=== PATIENT | female | born 1975 | race Caucasian/White ===

== ENCOUNTER 2021-01-23 14:39 | Emergency (ER) | payer BC ==
[2021-01-23 14:45] VITALS: PULSE 82
[2021-01-23] MEDS ORDERED: KETOROLAC 15 MG/ML 1 ML VIAL IM STA (15:16)
--- NOTE | 2021-01-23 15:19 | ED ---
Extremity Problem HPI - General Chief complaint: Extremity Problem,Nontraumatic Stated complaint: L Hip Pain Time Seen by Provider: 01/23/21 15:08 Source: patient, RN notes reviewed Mode of arrival: ambulatory Limitations: no limitations - History of Present Illness Initial comments: Patient is a 45-year-old female presents to emergency department complaining of left hip/low back pain. She notes that she has not done any new extra strenuous activities or work. She does not remember injuring her back with any weird twisting motions. She stated that last night she tried laying in bed cannot get comfortable no matter what position she tried she tried sleeping in a chair to no avail. She will the pain fluctuates between a 6 out of 10-8 out of 10 that is constant and unrelieved with medication or position changes. She did note that sitting causes the pain increased. She denied any point tenderness, chest pain first breath headache nausea vomiting diarrhea, fever fatigue chills weakness numbness paresthesias. - Related Data Previous Rx's Medication Instructions Recorded predniSONE 50 mg PO DAILY #5 tab 01/23/21 Allergies Allergy/AdvReac Type Severity Reaction Status Date / Time codeine Allergy Vomiting Verified 01/23/21 14:45 Review of Systems ROS Statement: Those systems with pertinent positive or pertinent negative responses have been documented in the HPI. ROS Other: All systems not noted in ROS Statement are negative. Past Medical History Additional Past Medical History / Comment(s): Eye pressure History of Any Multi-Drug Resistant Organisms: None Reported Past Surgical History: No Surgical Hx Reported Past Psychological History: No Psychological Hx Reported Smoking Status: Former smoker, Vaper Past Alcohol Use History: None Reported Past Drug Use History: Marijuana General Exam Limitations: no limitations General appearance: alert, in no apparent distress, obese Head exam: Present: atraumatic, normocephalic, normal inspection Eye exam: Present: normal appearance, PERRL, EOMI. Absent: scleral icterus, conjunctival injection, periorbital swelling ENT exam: Present: normal exam, mucous membranes moist Neck exam: Present: normal inspection. Absent: tenderness, meningismus, lymphadenopathy Respiratory exam: Present: normal lung sounds bilaterally. Absent: respiratory distress, wheezes, rales, rhonchi, stridor Cardiovascular Exam: Present: regular rate, normal rhythm, normal heart sounds. Absent: systolic murmur, diastolic murmur, rubs, gallop, clicks GI/Abdominal exam: Present: soft, normal bowel sounds. Absent: distended, tenderness, guarding, rebound, rigid Extremities exam: Present: normal inspection, full ROM, normal capillary refill, other (Positive well leg raise test on left side.). Absent: tenderness, pedal edema, joint swelling, calf tenderness Neurological exam: Present: alert, oriented X3, CN II-XII intact Psychiatric exam: Present: normal affect, normal mood Skin exam: Present: warm, dry, intact, normal color. Absent: rash Course Vital Signs 01/23/21 14:42 Temperature 97.6 F Pulse Rate 82 Respiratory 20 Rate Blood Pressure 172/83 O2 Sat by Pulse 98 Oximetry Medical Decision Making - Medical Decision Making 45-year-old male complaining of left hip pain lasts left lower back pain. Bilateral hip and pelvis x-ray ordered, 15 mg of Toradol ordered for pain. X-ray negative Case discussed with Dr. erickson, was decided patient could discharge home. Disposition Clinical Impression: Lumbar strain, Sciatica Disposition: HOME SELF-CARE Condition: Stable Instructions (If sedation given, give patient instructions): Low Back Strain (ED) Additional Instructions: Please return to the Emergency Department if symptoms worsen or any other concerns. Follow-up with primary care 1-2 days. Take medications as prescribed. Avoid any strenuous activity. Prescriptions: predniSONE 50 mg PO DAILY #5 tab Is patient prescribed a controlled substance at d/c from ED?: No Referrals: Silvia Bustamante MD [Primary Care Provider] - 1-2 days Time of Disposition: 16:15
--- NOTE | 2021-01-23 16:10 | XR ---
EXAMINATION TYPE: XR Hip Bilateral and AP pelvis DATE OF EXAM: 01/23/2021 COMPARISON: NONE HISTORY: Left hip pain TECHNIQUE: A single AP view of the pelvis is obtained. Two views of the bilateral hip are obtained. FINDINGS: There is no acute fracture/dislocation evident in the pelvis. The hip and sacroiliac join ts appear symmetric and unremarkable. The overlying soft tissue appears unremarkable. Two views of bilateral hip show no acute fracture or dislocation. No focal lytic or sclerotic lesion seen in the proximal bilateral femur. The overlying soft tissue is unremarkable. Probable phleboli ths present in the left hemipelvis IMPRESSION: There is no acute fracture or dislocation in the pelvis or bilateral hip.
--- NOTE | 2021-01-23 16:41 | ED ---
Medical Decision Making - Radiology Data Radiology results: report reviewed, image reviewed There is no acute fracture or dislocation the pelvis or bilateral hip. Disposition Clinical Impression: Lumbar strain, Sciatica Disposition: HOME SELF-CARE Condition: Stable Instructions (If sedation given, give patient instructions): Low Back Strain (ED) Additional Instructions: Please return to the Emergency Department if symptoms worsen or any other concerns. Follow-up with primary care 1-2 days. Take medications as prescribed. Avoid any strenuous activity. Prescriptions: predniSONE 50 mg PO DAILY #5 tab Is patient prescribed a controlled substance at d/c from ED?: No Referrals: Silvia Bustamante MD [Primary Care Provider] - 1-2 days
[2021-01-23 17:09] VITALS: BP 140/80; RESP 16; TEMP 98.2
== END 2021-01-23 16:50 | disposition home or self-care (01) ==
LOC: EC 14:39
DX: S39.012A Strain of muscle, fascia and tendon of lower back, initial encounter (principal); M54.42 Lumbago with sciatica, left side; Z88.5 Allergy status to narcotic agent; Z87.891 Personal history of nicotine dependence; X50.0XXA Overexertion from strenuous movement or load, initial encounter; Y92.69 Other specified industrial and construction area as the place of occurrence of the external cause; Y99.0 Civilian activity done for income or pay
CPT/HCPCS: 73521; 99283; 96372; J1885

== ENCOUNTER → 2021-05-28 | Outpatient (CLI) | payer BC ==
--- NOTE | 2021-05-28 20:28 | CONS ---
CONSULTATION DATE OF SERVICE: 05/28/2021. 45-year-old lady has been evaluated in [facility] for possible obstructive sleep apnea-hypopnea syndrome and significant excessive daytime sleepiness. HISTORY OF PRESENT ILLNESS/SLEEP-WAKE EVALUATION: SLEEP SCHEDULE: Patient's usual sleep schedule from 10 or 11 p.m. until 4:15 and 10:15 am depending from her shift schedule. On weekends, she sleeps from midnight until 8/10 a.m. FALLING ASLEEP: No problems with falling asleep although she has TV set in bedroom. DURING SLEEP: She usually sleeps on the back position. She snores very loudly with witnessed episodes of stopped breathing during sleep. She wakes up from sleep 2 times with nocturia. No history of hypnagogic hallucinations, sleep paralysis or cataplexy. DURING THE DAY/SLEEP WAKE EVALUATION: In the day she feels very sleepy, wakes up tired, irritability. Mathias Sleepiness Scale in the high range of 18. Usually no vivid dreams during naps. Usually feels refreshed after naps. PAST MEDICAL HISTORY: Positive for episodes of increasing blood pressure in the office, increasing eye pressure, anxiety, depression, acid reflux. PAST SURGICAL HISTORY: Hooper teeth removed. MEDICATIONS: Zoloft, eyedrops. SOCIAL HISTORY: Negative for smoking or using alcohol. FAMILY HISTORY: Positive for heart problems, snoring and diabetes by her father and cancer, headaches, acid reflex, mental illness by her mother. REVIEW OF SYSTEMS: Awakenings from sleep, significant excessive daytime sleepiness. PHYSICAL EXAMINATION: GENERAL: lady without distress. BP 163/77, HR 92, RR 15, height 5 feet 3 inches, weight 243 pounds. Body mass index 43, temperature 98.5, oxygen saturation at room air 97%. HEENT: Oropharynx low position of soft palate. Mallampati 3. NECK: Wide neck 19-1/2 inches in circumference. Neck: Supple, no JVD. Thyroid is not palpable. LUNGS: Clear to percussion and to auscultation. Good air exchange. No wheezing or rhonchi. HEART: S1, S2 regular. No murmurs, gallops, or rubs. ABDOMEN: Obese. Soft and nontender. Bowel sounds are present. No organomegaly appreciated. EXTREMITIES: No clubbing or cyanosis. 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 Cranial nerves 2 to 7 intact. There is no fasciculation or atrophy. noted. No focal deficits observed. IMPRESSION: 1. Loud snoring, witnessed episodes of stopped breathing during sleep, multiple awakenings from sleep, significant excessive daytime sleepiness. Low position of soft palate. Mallampati 3 extremely wide neck 19-1/2 inches in circumference. Obstructive sleep apnea-hypopnea syndrome. 2. Significant excessive daytime sleepiness. Mathias Sleepiness Scale is 18 dictate necessity to include hypersomnia and narcolepsy in differential diagnosis. 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 4. Raised blood pressure in medical offices including today in our office. 5. Increased eye pressure. 6. History of anxiety. 7. History of depression. 8. Acid reflux. PLAN: 1. Home sleep apnea test for confirming obstructive sleep apnea-hypopnea syndrome. 2. If home sleep apnea test negative or if the patient on treatment with CPAP, the patient continues to feel sleepiness, multiple sleep latency test. 3. Losing weight. 4. Sleep hygiene with regular time in bed for at least 7.5 to 8 hours. 5. No driving if feeling sleepiness. Thank you very much for referring this patient for consultation. Sincerely, Abe Nava MD, PhD, FAASM Diplomat of [place] [employer] [place] [employer] Ratings Analyst of [facility] MMODL / IJN: [id number] /
== END ==
LOC: SLEEP 16:40
PROVIDERS: ATTEND Internal Medicine
DX: G47.33 Obstructive sleep apnea (adult) (pediatric) (principal); F41.9 Anxiety disorder, unspecified; F32.9 Major depressive disorder, single episode, unspecified; K21.9 Gastro-esophageal reflux disease without esophagitis; H40.059 Ocular hypertension, unspecified eye; R03.0 Elevated blood-pressure reading, without diagnosis of hypertension; Z88.5 Allergy status to narcotic agent
CPT/HCPCS: 99211

== ENCOUNTER → 2022-05-24 | Outpatient (CLI) | payer BC ==
--- NOTE | 2022-05-25 15:08 | MM ---
Reason for Exam: Screening (asymptomatic). Baseline mammogram. Patient History: Menarche at age 13. Currently using Hormonal Contraceptives, beginning at age 40 for 7 years. Last menstrual period: 05/12/2022 Risk Values: Paradise 5 year model risk: 0.6%. NCI Lifetime model risk: 7.0%. Prior Study Comparison: Patient's first Mammogram. Tissue Density: The breast tissue is heterogeneously dense. This may lower the sensitivity of mammography. Findings: Analyzed By CAD. Benign appearance border nodules in the left breast. Short-term follow-up is recommended. No suspicious groups of microcalcifications, spiculated or lobular masses, architectural distortion or other secondary signs of malignancy are mammographically apparent. Overall Assessment: Probably benign, BI-RAD 3 Management: Diagnostic Mammogram of the left breast in 6 months. A negative mammogram report should not preclude additional follow up of suspicious palpable abnormalities. Patient should continue monthly self breast exam. A clinical breast exam by your physician is recommended on an annual basis and results should be correlated with mammographic findings. Electronically signed and approved by: Madan Sharma D.O. Radiologis
== END | disposition home or self-care (01) ==
LOC: RADMAMWWP 16:15
PROVIDERS: ATTEND Obstetrics & Gynecology Obstetrics
DX: Z12.31 Encounter for screening mammogram for malignant neoplasm of breast (principal)
CPT/HCPCS: 77067

== ENCOUNTER → 2023-12-06 | Outpatient (CLI) | payer BC ==
[2023-12-06 15:14] LABS: Anion Gap 13.1 mmol/L (4.00-12.00); Carbon Dioxide 22.9 mmol/L (21.6-31.8); Potassium 4.3 mmol/L (3.5-5.5)
[2023-12-06 15:35] LABS: Basophils # (A) 0.05 X 10*3/uL (0.00-0.10); Basophils % (A) 0.7 %; Eosinophils # (A) 0.18 X 10*3/uL (0.04-0.35); Eosinophils % (A) 2.4 %; HCT 43.9 % (37.2-46.3); HGB 14.3 g/dL (12.0-15.0); MCH 28.9 pg (27.0-32.0); MCHC 32.6 g/dL (32.0-37.0); MCV 88.7 FL (80.0-97.0); Mean Platelet Volume 9.9 FL (9.5-12.2); Monocytes # (A) 0.42 X 10*3/uL (0.20-1.00); Monocytes % (A) 5.7 %; NRBC Per 100 WBC 0 X 10*3/uL (0.00-0.01); Neutrophils # (A) 5.01 X 10*3/uL (1.80-7.70); Neutrophils % (A) 67.9 %; Platelet Count 261 X 10*3/uL (140-440); RBC 4.95 X 10*6/uL (4.10-5.20); RDW 13.8 % (11.5-14.5); WBC 7.38 X 10*3/uL (4.50-10.00)
== END | disposition home or self-care (01) ==
LOC: LABPAT 09:59
PROVIDERS: ATTEND Orthopaedic Surgery Hand Surgery
DX: Z01.812 Encounter for preprocedural laboratory examination (principal); G56.02 Carpal tunnel syndrome, left upper limb
CPT/HCPCS: 80051; 85025

== ENCOUNTER 2023-12-14 07:07 | Day surgery (SDC) | payer BC ==
--- NOTE | 2023-12-12 13:18 | P.HPOR ---
History of Present Illness H&P Date: 12/12/23 Subjective: This is a 48 year old female that presents today for initial evaluation regarding a several year history of progressively worsening left hand paresthesias in the thumb, index, middle and ring fingers. The patient has tried bracing and PO steroids with only temporary relief. The patient denies any inciting event or neck pain. She states her left is worse than her right. 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 Physical Examination: LUE: AIN/PIN/Radial/Ulnar/Median motor intact. Radial/Ulnar/Median SILT. 2+/4 Radial/Ulnar pulses palpated. 5/5 APB, 5/5 FDI. Negative Finkelsteins, negative CMC grind, positive Durkan's compression. RUE: AIN/PIN/Radial/Ulnar/Median motor intact. Radial/Ulnar/Median SILT. 2+/4 Radial/Ulnar pulses palpated. 5/5 APB, 5/5 FDI. Negative Finkelsteins, negative CMC grind, positive Durkan's compression. Impression: 1.) Left carpal tunnel syndrome 2.) Right carpal tunnel syndrome Plan: Diagnosis and treatment options were discussed with the patient. The patient has failed conservative treatment and would like to pursue a left endoscopic vs open carpal tunnel release followed by the same on her right side 2 weeks later. Risks and benefits of surgery including bleeding, infection, damage to surrounding tissue, need for further surgery, possible need to convert to open procedure, residual numbness were discussed and the patient wished to go forward with surgery. CC: Danay Goodman NP -Nick Quiroz DO Orthopedic Hand/Upper Extremity Surgeon Past Medical History Past Medical History: Eye Disorder, Sleep Apnea/CPAP/BIPAP Additional Past Medical History / Comment(s): Eye pressure,sesonal allergies, uses cpap History of Any Multi-Drug Resistant Organisms: None Reported Past Surgical History: No Surgical Hx Reported Additional Past Surgical History / Comment(s): colonoscopy Past Anesthesia/Blood Transfusion Reactions: No Reported Reaction Smoking Status: Former smoker - Past Family History Father Family Medical History: Cancer Additional Family Medical History / Comment(s): pancreatic Mother Family Medical History: Cancer, Deep Vein Thrombosis (DVT) Additional Family Medical History / Comment(s): melanoma Medications and Allergies Home Medications Medication Instructions Recorded Confirmed Type Cetirizine HCl [Zyrtec] 10 mg PO Q48H 12/09/23 12/09/23 History Latanoprost [Latanoprost 0.005%] 1 drop BOTH EYES DAILY 12/09/23 12/09/23 History Sertraline [Zoloft] 100 mg PO DAILY 12/09/23 12/09/23 History Simpesse 1 tab PO DAILY 12/09/23 12/09/23 History Vid D (Unk) 1 tab PO Q72H 12/09/23 12/09/23 History Allergies Allergy/AdvReac Type Severity Reaction Status Date / Time codeine Allergy Vomiting Verified 12/09/23 08:44 Physical Examination Osteopathic Statement: *. No significant issues noted on an osteopathic structural exam other than those noted in the History and Physical/Consult.
[~2023-12-14 07:07] MED LIST: HYDROmorphone 0.5 MG/0.5 ML SYRINGE IVP PRN; LACTATED RINGERS 1,000 ML IV SCH; ONDANSETRON 4 MG/2 ML VIAL IVP ONE
[2023-12-14] MEDS ORDERED: KETAMINE HCL IN 0.9 % NACL 50 MG/5 ML SYRINGE ONE (08:05)
[2023-12-14] MEDS ORDERED: fentaNYL (PF) 50 MCG/ML 2 ML AMP ONE (08:05)
[2023-12-14] MEDS ORDERED: LIDOCAINE 1% INJ 10MG/ML (20 ML MDV) ONE (08:05)
[2023-12-14] MEDS ORDERED: MIDAZOLAM 2 MG/2 ML VIAL ONE (08:05)
[2023-12-14] MEDS ORDERED: PROPOFOL 10 MG/ML 20 ML VIAL IV ONE (08:05)
[2023-12-14] MEDS ORDERED: LIDOCAINE 2% INJ 20 MG/ML SQ ONE ×2 (08:15→08:24)
[2023-12-14] MEDS ORDERED: BUPIVACAINE (PF) 0.5% 30 ML VIAL SQ ONE ×2 (08:15→08:24)
[2023-12-14 08:23] VITALS: RESP 16; TEMP 97.6
--- NOTE | 2023-12-14 08:49 | P.OP ---
Date of Procedure: 12/14/23 Preoperative Diagnosis: Left carpal tunnel syndrome Postoperative Diagnosis: Left carpal tunnel syndrome Procedure(s) Performed: Left endoscopic carpal tunnel release Anesthesia: MAC Surgeon: Nick Quiroz Estimated Blood Loss (ml): 0 Pathology: none sent Condition: stable Disposition: PACU Description of Procedure: This is a 48 year old female who presents today for a left endoscopic carpal tunnel release after having failed conservative treatment in the past. Risks and benefits of surgery were discussed with the patient including bleeding, damage to surrounding tissue, infection, need to convert to open procedure, need for further surgery as well as risks of anesthesia including pulmonary embolism and even and the patient wished to proceed with surgical intervention. The patients was seen in the pre-operative area by myself. Consent and H&P were completed and updated. The correct extremity was marked in the pre-operative area by myself and all other questions were answered. Operative Narrative: The patient was brought to the operating room by the department of anesthesia. They remained on the portable stretcher and a rolling hand table was brought to the side of the operative extremity. Pre-operative time out was performed indicating the correct patient, procedure and laterality. All in the room agreed. The patient was then drifted off to sleep by the department of anesthesia. MAC anesthesia was utilized and a 50:50 mixture of 1% Lidocaine and 0.5% bupivacaine was injected into the subcutaneous tissues of the palmar skin, 8ccs total. A nonsterile tourniquet was then applied to the operative extremity and the left upper extremity was then prepped and draped in normal sterile fashion. The operative extremity was the exsanguinated with an esmarch bandage and the tourniquet was inflated to 250mmHg. 15 blade scalpel was utilized to make a transverse incision on the palmar skin just ulnar to the palmaris longus tendon at the level of the distal wrist crease. Ragnell retractor was then placed radially and blunt dissection was performed to reveal the distal forearm fascia. This was lifted with fine Mumtaz pick ups and Littler tenotomy scissors were then used to open the forearm fascia transversely and a double skin hook was then placed. Hamate finder was placed into the carpal tunnel and then sequential sized dilators were inserted followed by the synovial elevator to separate the flexor tenosynovium from the undersurface of the transverse carpal ligament and a washboard texture was felt. The MicroAire endoscopic carpal tunnel release system gun was the then inserted into the carpal tunnel hugging the deep portion of the transverse carpal ligament in line with the base of the ring finger. Transverse fibers of the ligament were directly visualized. Pressure was applied on the palm to reveal the distal extent of the transverse carpal ligament. The blade was then deployed and the distal half of the transverse carpal ligament was released. The scope was then brought distal again and remaining transverse fibers were incised with the blade. The proximal half of the transverse carpal ligament was then divided and again the scope was advanced distal and remaining transverse fibers were incised with the blade. The radial and ulnar leaflets were directly visualized and mobile consistent with complete release. Tenotomy scissors were then utilized to release the remaining distal forearm fascia under direct visualization taking care to preserve the palmar cutaneous branch of the median nerve. Skin closure was performed with interrupted 4-0 Monocryl suture followed by steri strips. Sterile dressing was applied consisting 4x4s, Webril, and an erasmo bandage. Tourniquet was let down and the hand immediately was well perfused. The patient was then woken by the department of anesthesia and transferred to PACU in stable condition. Nick Quiroz D.O. Orthopedic Hand/Upper Extremity Surgeon
[2023-12-14 09:13] VITALS: BP 119/79; PULSE 90
== END 2023-12-14 09:23 | disposition home or self-care (01) ==
LOC: OR 07:07
PROVIDERS: ATTEND Orthopaedic Surgery Hand Surgery
DX: G56.02 Carpal tunnel syndrome, left upper limb (principal); G47.33 Obstructive sleep apnea (adult) (pediatric); J30.2 Other seasonal allergic rhinitis; F41.9 Anxiety disorder, unspecified; F32.A Depression, unspecified; F10.90 Alcohol use, unspecified, uncomplicated; Z87.891 Personal history of nicotine dependence; Z79.899 Other long term (current) drug therapy
CPT/HCPCS: 81025; 29848; J2001 ×2; J2250; J2405; J3010; J2704; J0665

== ENCOUNTER 2023-12-28 07:25 | Day surgery (SDC) | payer BC ==
--- NOTE | 2023-12-27 11:28 | P.HPOR ---
History of Present Illness H&P Date: 12/27/23 Subjective: This is a 48 year old female that presents today for evaluation regarding a several year history of progressively worsening right hand paresthesias in the thumb, index, middle and ring fingers. The patient has tried bracing and PO steroids with only temporary relief. The patient denies any inciting event or neck pain. 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 Physical Examination: RUE: AIN/PIN/Radial/Ulnar/Median motor intact. Radial/Ulnar/Median SILT. 2+/4 Radial/Ulnar pulses palpated. 5/5 APB, 5/5 FDI. Negative Finkelsteins, negative CMC grind, positive Durkan's compression. Impression: 1.) Left carpal tunnel syndrome s/p left endoscopic carpal tunnel release 2.) Right carpal tunnel syndrome Plan: Diagnosis and treatment options were discussed with the patient. The patient has failed conservative treatment and would like to pursue a right endoscopic vs open carpal tunnel release. Risks and benefits of surgery including bleeding, infection, damage to surrounding tissue, need for further surgery, possible need to convert to open procedure, residual numbness were discussed and the patient wished to go forward with surgery. CC: Danay Goodman NP -Nick Quiroz DO Orthopedic Hand/Upper Extremity Surgeon Past Medical History Additional Past Medical History / Comment(s): Eye pressure History of Any Multi-Drug Resistant Organisms: None Reported Past Surgical History: No Surgical Hx Reported Additional Past Surgical History / Comment(s): left carpal tunnel Smoking Status: Former smoker, Vaper - Past Family History Mother Family Medical History: Cancer, Deep Vein Thrombosis (DVT) Additional Family Medical History / Comment(s): dad pacreatic, mom dvt and me lanoma Medications and Allergies Home Medications Medication Instructions Recorded Confirmed Type Cetirizine HCl [Zyrtec] 10 mg PO Q48H 12/09/23 12/21/23 History Latanoprost [Latanoprost 0.005%] 1 drop BOTH EYES DAILY 12/09/23 12/21/23 History Sertraline [Zoloft] 100 mg PO DAILY 12/09/23 12/21/23 History Simpesse 1 tab PO DAILY 12/09/23 12/21/23 History Vid D (Unk) 1 tab PO Q72H 12/09/23 12/21/23 History Allergies Allergy/AdvReac Type Severity Reaction Status Date / Time codeine Allergy Vomiting Verified 12/21/23 15:51 Physical Examination Osteopathic Statement: *. No significant issues noted on an osteopathic structural exam other than those noted in the History and Physical/Consult.
[~2023-12-28 07:25] MED LIST changes: -HYDROmorphone 0.5 MG/0.5 ML SYRINGE IVP PRN; -LACTATED RINGERS 1,000 ML IV SCH; -ONDANSETRON 4 MG/2 ML VIAL IVP ONE; +Pre Op ABX Message 1 EACH MISC MISCELLANE ONE
[2023-12-28] MEDS ORDERED: LACTATED RINGERS 1,000 ML IV SCH (07:35)
[2023-12-28] MEDS ORDERED: ONDANSETRON 4 MG/2 ML VIAL IVP ONE (07:35)
[2023-12-28] MEDS ORDERED: DEXAMETHASONE SOD PHOSPHATE 4 MG/ML 1 ML VIAL IV ONE (07:35)
[2023-12-28] MEDS ORDERED: fentaNYL (PF) 50 MCG/ML 2 ML AMP IV PRN (07:35)
[2023-12-28 08:03] VITALS: TEMP 97.4
[2023-12-28] MEDS ORDERED: fentaNYL (PF) 50 MCG/ML 2 ML AMP ONE (08:30)
[2023-12-28] MEDS ORDERED: MIDAZOLAM 2 MG/2 ML VIAL ONE (08:30)
[2023-12-28] MEDS ORDERED: KETAMINE HCL IN 0.9 % NACL 50 MG/5 ML SYRINGE ONE (08:30)
[2023-12-28] MEDS ORDERED: PROPOFOL 10 MG/ML 20 ML VIAL IV ONE (08:30)
[2023-12-28] MEDS ORDERED: BUPIVACAINE (PF) 0.5% 30 ML VIAL SQ ONE ×2 (08:32→08:34)
[2023-12-28] MEDS ORDERED: LIDOCAINE 2% INJ 20 MG/ML SQ ONE ×2 (08:32→08:34)
--- NOTE | 2023-12-28 09:02 | P.OP ---
Date of Procedure: 12/28/23 Preoperative Diagnosis: Right carpal tunnel syndrome Postoperative Diagnosis: Right carpal tunnel syndrome Procedure(s) Performed: Right endoscopic carpal tunnel release Anesthesia: MAC Surgeon: Nick Quiroz Fire Tower Keeper #1: Parish Rdz Estimated Blood Loss (ml): 0 Pathology: none sent Condition: stable Disposition: PACU Description of Procedure: This is a 48 year old female who presents today for a right endoscopic carpal tunnel release after having failed conservative treatment in the past. Risks and benefits of surgery were discussed with the patient including bleeding, damage to surrounding tissue, infection, need to convert to open procedure, need for further surgery as well as risks of anesthesia including pulmonary embolism and even and the patient wished to proceed with surgical intervention. The patients was seen in the pre-operative area by myself. Consent and H&P were completed and updated. The correct extremity was marked in the pre-operative area by myself and all other questions were answered. Operative Narrative: The patient was brought to the operating room by the department of anesthesia. They remained on the portable stretcher and a rolling hand table was brought to the side of the operative extremity. Pre-operative time out was performed indicating the correct patient, procedure and laterality. All in the room agreed. The patient was then drifted off to sleep by the department of an esthesia. MAC anesthesia was utilized and a 50:50 mixture of 1% Lidocaine and 0.5% bupivacaine was injected into the subcutaneous tissues of the palmar skin, 8ccs total. A nonsterile tourniquet was then applied to the operative extremity and the right upper extremity was then prepped and draped in normal sterile fashion. The operative extremity was the exsanguinated with an esmarch bandage and the tourniquet was inflated to 250mmHg. 15 blade scalpel was utilized to make a transverse incision on the palmar skin just ulnar to the palmaris longus tendon at the level of the distal wrist creas e. Ragnell retractor was then placed radially and blunt dissection was performed to reveal the distal forearm fascia. This was lifted with fine Mumtaz pick ups and Littler tenotomy scissors were then used to open the forearm fascia transversely and a double skin hook was then placed. Hamate finder was placed into the carpal tunnel and then sequential sized dilators were inserted followed by the synovial elevator to separate the flexor tenosynovium from the undersurface of the transverse carpal ligament and a washboard texture was felt. The MicroAire endoscopic carpal tunnel release system gun was the then inserted into the carpal tunnel hugging the deep portion of the transverse carpal ligament in line with the base of the ring finger. Transverse fibers of the ligament were directly visualized. Pressure was applied on the palm to reveal the distal extent of the transverse carpal ligament. The blade was then deployed and the distal half of the transverse carpal ligament was released. The scope was then brought distal again and remaining transverse fibers were incised with the blade. The proximal half of the transverse carpal ligament was then divided and again the scope was advanced distal and remaining transverse fibers were incised with the blade. The radial and ulnar leaflets were directly visualized and mobile consistent with complete release. Tenotomy scissors were then ut ilized to release the remaining distal forearm fascia under direct visualization taking care to preserve the palmar cutaneous branch of the median nerve. Skin closure was performed with interrupted 4-0 Monocryl suture followed by steri strips. Sterile dressing was applied consisting 4x4s, Webril, and an erasmo bandage. Tourniquet was let down and the hand immediately was well perfused. The patient was then woken by the department of anesthesia and transferred to PACU in stable condition. Parish BOWERS was present for the case in its entirety and assisted in major portions of the case and protection of vital neurovascular structures. Nick Quiroz D.O. Orthopedic Hand/Upper Extremity Surgeon
[2023-12-28 09:32] VITALS: BP 124/70; PULSE 97; RESP 18
== END 2023-12-28 09:30 | disposition home or self-care (01) ==
LOC: OR 07:25
PROVIDERS: ATTEND Orthopaedic Surgery Hand Surgery
DX: G56.01 Carpal tunnel syndrome, right upper limb (principal); F32.A Depression, unspecified; E66.01 Morbid (severe) obesity due to excess calories; G47.33 Obstructive sleep apnea (adult) (pediatric); Z87.891 Personal history of nicotine dependence; Z98.890 Other specified postprocedural states; Z80.8 Family history of malignant neoplasm of other organs or systems; Z88.5 Allergy status to narcotic agent; Z79.899 Other long term (current) drug therapy; Z96.652 Presence of left artificial knee joint; Z68.41 Body mass index [BMI] 40.0-44.9, adult
CPT/HCPCS: 29848; 81025; J2001; J2250; J1100; J2405; J3010; J2704; J0665

== ENCOUNTER → 2024-01-05 | Outpatient (CLI) | payer BC ==
--- NOTE | 2024-01-09 19:25 | MM ---
Reason for Exam: Screening (asymptomatic). Last mammogram was performed 1 year(s) and 8 month(s) ago. Patient History: Menarche at age 13. Patient has no children. Currently using Hormonal Contraceptives, beginning at age 40 for 7 years. Risk Values: Paradise 5 year model risk: 1.0%. NCI Lifetime model risk: 10.3%. Prior Study Comparison: 05/24/2022 Bilateral MG screening mammo w CAD, [facility]. Tissue Density: There are scattered fibroglandular densities. Findings: Analyzed By CAD. There is no suspicious group of microcalcifications or new suspicious mass in either breast. Overall Assessment: Negative, BI-RAD 1 Management: Screening Mammogram of both breasts in 1 year. . Patient should continue monthly self-breast exams. A clinical breast exam by your physician is recommended on an annual basis. This exam should not preclude additional follow-up of suspicious palpable abnormalities. Note on Paradise scores and lifetime risk: 1. A Paradise score greater than 3% is considered moderate risk. If this is the case, consider specialist referral to assess eligibility for a risk reducing agent. 2. If overall lifetime risk for the development of breast cancer is 20% or higher, the patient may qualify for future screening with alternating mammogram and breast MRI. Electronically signed and approved by: Farnaz Wright M.D. Radiologist
== END | disposition home or self-care (01) ==
LOC: RADMAMWWP 14:24
PROVIDERS: ATTEND Obstetrics & Gynecology Obstetrics
DX: Z12.31 Encounter for screening mammogram for malignant neoplasm of breast (principal)
CPT/HCPCS: 77067